=== PATIENT | female | born 1965 | race Caucasian/White ===

== ENCOUNTER → 2017-01-28 | Outpatient (CLI) | payer BC ==
--- NOTE | ~2017-01-28 | MR103 ---
[facility] A Service of [facility] & [facility] RADIOLOGY TEXT RESULTS PATIENT: ADELIA BE LOCATION: [facility] : 65 UNIT #: [id number] AGE: [address]: Luigi Oh MD SEX: F ORDER DR: [id number] [address] [address] [id number] O MR#: [id number] Acc #: [id number] NAME: ADELIA BE : 1965 SEX: F STUDY DATE/TIME: 01/28/2017 8:53 UNIT: [facility] ROOM: STUDY DESCRIPTION: MR Knee Wo Contrast Lt Attending Physician: Luigi Oh M.D. Referring Physician: Luigi Oh M.D. Ordering Physician: Luigi Oh M.D. Primary Care Physician: Cash Moya A.P.R.N. MRI CENTER REPORT This report is preliminary unless electronic signature is present. EXAM MRI of the left knee without contrast HISTORY 52-year-old female complains of increasing left knee pain ever since fall 9-10 months ago. Clinical concern for meniscal tear. COMPARISON Left knee films 01/17/2017. FINDINGS Multiplanar, multiecho imaging was performed of the left knee utilizing a high-field magnet and dedicated protocol. Increased T2 marrow signal noted about the knee, particularly within the distal femur, most likely represents red marrow hyperplasia most likely related to underlying body habitus. There is a small knee effusion. Fluid distends the GS bursa with a small popliteal cyst measuring close to 4 cm. 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 There is mild medial extrusion of the meniscus. Medial compartment articular cartilage appears intact. In the lateral compartment, the meniscus and articular cartilage appears normal. Patellar cartilage remarkable for mild chondromalacia medial patellar facet. Trochlear cartilage unremarkable. There is thickening of the anterior cruciate ligament with laxity of the ACL ligamentous fibers, could represent sequelae of previous tear. No high-grade tear identified. The posterior cruciate ligament appears intact. Medial collateral ligament and lateral collateral ligament complex appears normal. Extensor mechanism unremarkable. Extraarticular soft tissues appear normal. [facility]. [facility] A Service of [facility] RADIOLOGY TEXT RESULTS PATIENT: ADELIA BE LOCATION: [facility] : 65 UNIT #: [id number] AGE: [address]: Luigi Oh MD SEX: F ORDER DR: IMPRESSION 1. 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 2. Small knee effusion and small popliteal cyst. 3. Thickening and increased signal within the ACL with questionable laxity of the ACL fibers could reflect the sequelae of prior partial tear, no convincing evidence of a high-grade injury. Dictated by... Santiago Wang M.D. THIS IS AN ELECTRONICALLY VERIFIED REPORT Santiago Wang M.D. at 01/29/2017 5:00 PM [email or web address]/[email or web address] TD: 01/29/2017 01:39 JOB #: [id number] MRI CENTER REPORT
== END | disposition home or self-care (01) ==
LOC: SMRI 08:32
DX: S83.207A Unspecified tear of unspecified meniscus, current injury, left knee, initial encounter (principal); M23.222 Derangement of posterior horn of medial meniscus due to old tear or injury, left knee; M25.462 Effusion, left knee; M71.22 Synovial cyst of popliteal space [Baker], left knee
CPT/HCPCS: 73721